=== PATIENT | male | born 1970 | race Two or more races ===

== ENCOUNTER 2021-10-25 05:19 | Emergency (ER) | payer OTHER ==
[~2021-10-25] VITALS: Ht 170.2 cm; Wt 83.9 kg
[2021-10-25] MEDS ORDERED: MEDROLPACK PO (14:54)
[2021-10-25] MEDS ORDERED: ZITHROMAX500 MG PO (14:54)
[2021-10-25] MEDS ORDERED: MUCINEX DM ER1 EAC1 PO (14:54)
[2021-10-25] MEDS ORDERED: PROAIR RESPICL90 MCG IH (14:54)
[2021-10-25] MEDS ORDERED: PAXLOVID PO (14:58)
== END 2021-10-25 15:28 | disposition home or self-care (01) ==
LOC: ER 05:19
DX: U07.1 COVID-19 (principal); J12.82 Pneumonia due to coronavirus disease 2019

== ENCOUNTER 2021-12-23 08:28 | Outpatient (CLI) | payer OTHER ==
[~2021-12-23 08:28] MED LIST: MEDROLPACK PO; MUCINEX DM ER1 EAC1 PO; PAXLOVID PO; PROAIR RESPICL90 MCG IH; ZITHROMAX500 MG PO
== END 2021-12-23 08:31 | disposition home or self-care (01) ==
LOC: TOM 08:28
PROVIDERS: ATTEND Internal Medicine Pulmonary Disease
DX: E66.01 Morbid (severe) obesity due to excess calories (principal); Z87.891 Personal history of nicotine dependence; U07.1 COVID-19